=== PATIENT | male | born 1960 | race Caucasian/White ===

== ENCOUNTER 2018-09-16 11:26 | Day surgery (SDC) | payer OTHER ==
[2018-09-16] MEDS ORDERED: FENTAnyl 50 MCG/ML VIAL (12:28)
[2018-09-16] MEDS ORDERED: PROPOFOL 20 ML (12:28)
[2018-09-16] MEDS ORDERED: ONDANSETRON 4 MG INJ IV (12:30)
== END 2018-09-16 13:23 | disposition home or self-care (01) ==
LOC: GIL 11:26
DX: K29.30 Chronic superficial gastritis without bleeding (principal)
CPT/HCPCS: 43239; 88305; 88312